=== PATIENT | female | born 1980 | race Caucasian/White ===

== ENCOUNTER → 2023-12-14 | Outpatient (CLI) | payer BC ==
[~2023-12-14] MED LIST: ADALAT CC30 MG PO; DILTIAZEM180 MG PO; MOTRIN 600600 MG/TAB PO; NASONEX SPRAY17 GM NS; PERCOCET 325 MG1 TA2 PO; PRENATAL1 TA1 PO; SINGULAIR 110 MG/TAB PO; ZYRTEC 10MG10 MG PO
== END ==
LOC: MC.RAD 16:50
DX: Z12.31 Encounter for screening mammogram for malignant neoplasm of breast (principal)